=== PATIENT | female | born 1980 ===

== ENCOUNTER 2020-07-14 17:13 | Emergency (ER) | payer MEDICAID ==
--- NOTE | 2020-07-14 17:36 | EDM.PDOC ---
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 Current Visit: Yes Onset Date: ~07/07/20 Annotation/Comment:: Long history of intermittent chest pain as above with some progression during the last week. Chest pain protocol was initiated upon patient's arrival to the emergency room. Note borderline anterior wall cardial ischemia versus lead placement. Mild leukocytosis possibly secondary to stress reaction with no fever or signs of infection. Mild change in troponin I, which is still normal with otherwise normal cardiac enzymes. Various therapeutic options were discussed with the patient, who does not wish to be hospitalized for rule out GA at this time. Close follow-up by regular provider, including recommended Cardiolite stress test in this facility, etc., as per discharge instructions. Work excuse provided. Activity restrictions were discussed. Qualifiers: Chest pain type: precordial pain Qualified Code(s): R07.2 - Precordial pain (2) Peptic reflux disease SNOMED Code(s): 674536697 Code(s): K21.9 - GASTRO-ESOPHAGEAL REFLUX DISEASE WITHOUT ESOPHAGITIS Status: Chronic Priority: High Current Visit: Yes Annotation/Comment:: Previous history of GERD with patient apparently recently prescribed Voltaren, which will now be used with discretion. High-dose IV Pepcid given as GI prophylaxis with resolution of patient's chest pain at time of discharge. Consider EGD, stool for H. pylori antigen, Prilosec therapy, etc. depending on her clinical course and/or once her cardiac status has been clarified. (3) Hyperthyroidism SNOMED Code(s): 35483218 Code(s): E05.90 - THYROTOXICOSIS, UNSP WITHOUT THYROTOXIC CRISIS OR STORM Status: Chronic Priority: Medium Current Visit: Yes Annotation/Comment:: Long history of borderline subclinical hyperthyroidism by her history. Free T3 and free T4 at follow-up with consideration of thyroid ultrasound, etc. depending on her clinical course. (4) Hypotension SNOMED Code(s): 59476892 Code(s): I95.9 - HYPOTENSION, UNSPECIFIED Status: Chronic Priority: Medium Current Visit: Yes Annotation/Comment:: Long history of mild hypotension, which was not symptomatic in the emergency room. Qualifiers: Hypotension type: idiopathic hypotension Qualified Code(s): I95.0 - Idiopathic hypotension (5) Illicit drug use, continuous SNOMED Code(s): 038504138 Code(s): F19.90 - OTHER PSYCHOACTIVE SUBSTANCE USE, UNSPECIFIED, UNCOMPLICATED Status: Chronic Priority: Medium Current Visit: Yes Annotation/Comment:: History of previous significant illicit drug use as above with continuous marijuana use at this time. Patient was counseled extensively on the importance of discontinuing marijuana, its side effects, etc. (6) Irritable bowel syndrome SNOMED Code(s): 81883450 Code(s): K58.9 - IRRITABLE BOWEL SYNDROME WITHOUT DIARRHEA Status: Chronic Priority: Medium Current Visit: Yes Annotation/Comment:: Stable by history Qualifiers: Irritable bowel syndrome type: with both diarrhea and constipation Qualified Code(s): K58.2 - Mixed irritable bowel syndrome (7) Mixed anxiety and depressive disorder SNOMED Code(s): 635100064 Code(s): F41.8 - OTHER SPECIFIED ANXIETY DISORDERS Status: Chronic Priority: Medium Current Visit: Yes Annotation/Comment:: Moderately poor control based on today's exam. Close follow-up by regular provider with medication adjustment, counseling, etc. depending on her clinical course. (8) Osteoarthritis SNOMED Code(s): 548748845 Code(s): M19.90 - UNSPECIFIED OSTEOARTHRITIS, UNSPECIFIED SITE Status: Chronic Priority: Medium Current Visit: Yes Annotation/Comment:: Stable by history with no evidence of DVT, PE, etc. D-dimer reagent was not unavailable today with d-dimer to be conducted at follow-up. Qualifiers: Osteoarthritis location: multiple joints Osteoarthritis type: primary Qualified Code(s): M89.49 - Other hypertrophic osteoarthropathy, multiple sites (9) Tobacco abuse counseling SNOMED Code(s): 218138776, 472521841, 435152610 Code(s): Z71.6 - TOBACCO ABUSE COUNSELING Status: Chronic Priority: Medium Current Visit: Yes Annotation/Comment:: Tobacco cessation strongly encouraged, including its relationship to her probable GERD, etc. Tobacco cessation information provided. (10) Shortened OH interval SNOMED Code(s): 16316225 Code(s): R94.31 - ABNORMAL ELECTROCARDIOGRAM [ECG] [EKG] Status: Acute Priority: Medium Current Visit: Yes Onset Date: 07/14/20 Annotation/Comment:: Observe for now. - Problem List Review Problem List Initiated/Reviewed/Updated: Yes - My Orders Last 24 Hours: My Active Orders 07/14/20 Breakfast Nothing per Oral Now Diet [DIET] 07/14/20 17:47 Cardiac Monitoring [RC] . DIRECTED EKG Documentation Completion [RC] ASDIRECTED Oxygen Therapy, ED [RC] CONTINUOUS Peripheral IV Care [RC] . DIRECTED Pulse Oximetry [RC] PRN Up With Assistance [RC] PFP Vital Signs [RC] PFP Chest 1V Frontal [CR] Stat Sodium Chloride 0.9% [Saline Flush] 10 ml FLUSH ASDIRECTED PRN Obtain Past Medical Record [OM.PC] Urgent Peripheral IV Insertion Adult [OM.PC] Stat Resuscitation Status Stat EKG 12 Lead [EK] Stat - Assessment/Plan Last 24 Hours: My Active Orders 07/14/20 Breakfast Nothing per Oral Now Diet [DIET] 07/14/20 17:47 Cardiac Monitoring [RC] . DIRECTED EKG Documentation Completion [RC] ASDIRECTED Oxygen Therapy, ED [RC] CONTINUOUS Peripheral IV Care [RC] . DIRECTED Pulse Oximetry [RC] PRN Up With Assistance [RC] PFP Vital Signs [RC] PFP Chest 1V Frontal [CR] Stat Sodium Chloride 0.9% [Saline Flush] 10 ml FLUSH ASDIRECTED PRN Obtain Past Medical Record [OM.PC] Urgent Peripheral IV Insertion Adult [OM.PC] Stat Resuscitation Status Stat EKG 12 Lead [EK] Stat Assessment:: As above Plan: As above. Extensive precautions were given to the patient and her significant other, who are in agreement with the treatment plan. See Patient Instructions for further treatment and plan.
[2020-07-14] MEDS ORDERED: Aspirin 81 MG Tab.Chew CHEW ONE (17:47)
[2020-07-14] MEDS ORDERED: Famotidine 20 MG/2 ML SDV IVPUSH ONE (17:47)
[2020-07-14] MEDS ORDERED: Sodium Chloride 0.9% 10 ML Syringe FLUSH PRN (17:47)
[2020-07-14] MEDS ORDERED: Ticagrelor 90 MG Tab PO ONE (17:47)
[2020-07-14 18:10] LABS: HEMOGLOBIN A1C 5.2 % (4.3-5.7)
[2020-07-14 18:13] LABS: PTT,PARTIAL THROMBOPLSTIN TIME 25.9 SEC (24.5-32.8)
[2020-07-14 18:27] LABS: CHLORIDE,CL 103 mmol/L (98-107); SODIUM,NA 139 mmol/L (136-145)
== END 2020-07-14 19:03 | disposition home or self-care (01) ==
LOC: LL.ED 17:13
DX: K58.2 Mixed irritable bowel syndrome (principal); I95.0 Idiopathic hypotension; M89.49 Other hypertrophic osteoarthropathy, multiple sites; R07.2 Precordial pain; K21.9 Gastro-esophageal reflux disease without esophagitis; F41.8 Other specified anxiety disorders; Z71.6 Tobacco abuse counseling; F17.210 Nicotine dependence, cigarettes, uncomplicated; F19.90 Other psychoactive substance use, unspecified, uncomplicated; R94.31 Abnormal electrocardiogram [ECG] [EKG]; E05.90 Thyrotoxicosis, unspecified without thyrotoxic crisis or storm; Z79.899 Other long term (current) drug therapy
CPT/HCPCS: 36415; 71045; 80053; 82550; 82553; 83036; 83605; 83735; 83880; 84443; 84484; 84550; 85025; 85610; 85730; 93005; 96374; 99285; A9270; J3490

== ENCOUNTER 2020-07-30 01:37 | Emergency (ER) | payer BC, MEDICAID ==
[~2020-07-30 01:37] MED LIST: LORazepam 2 MG/ML SDV IVPUSH ONE
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
[2020-07-30] MEDS ORDERED: LORazepam 2 MG/ML SDV IVPUSH ONE ×2 (01:40→02:02)
[2020-07-30] MEDS ORDERED: Haloperidol Lactate 5 MG/ML SDV IV ONE (01:48)
[2020-07-30] MEDS ORDERED: Haloperidol Lactate 5 MG/ML SDV IVPUSH ONE (01:49)
[2020-07-30] MEDS ORDERED: Famotidine 20 MG/2 ML SDV IVPUSH ONE (02:09)
[2020-07-30] MEDS ORDERED: Lactated Ringers 1,000 ML IV SCH (02:15)
[2020-07-30 02:31] LABS: CHLORIDE,CL 105 mmol/L (98-107); SODIUM,NA 143 mmol/L (136-145)
[2020-07-30] MEDS ORDERED: Pantoprazole 40 MG Vial IVPUSH ONE (02:59)
[2020-07-30] MEDS: Sodium Chloride 0.9% 10 ML Syringe FLUSH PRN ×6 (03:19→09:25)
[2020-07-30] MEDS ORDERED: cefTRIAXone 1 GM in Sodium Chloride 0.9% 100 ML IV ONE (07:36)
[2020-07-30 07:37] LABS: BARBITURATE SCREEN,URINE NEGATIVE (NEGATIVE); BENZODIAZEPINES SCREEN,URINE POSITIVE (NEGATIVE); EDDP,URINE SCREEN NEGATIVE (NEGATIVE); TCA SCREEN,URINE NEGATIVE (NEGATIVE); THC SCREEN,URINE 50 NG/ML POSITIVE (NEGATIVE)
[2020-07-30] MEDS ORDERED: Lactated Ringers 1,000 ML IV ONE (07:39)
[2020-07-30] MEDS ORDERED: Iopamidol 612 MG/ML 100 ML Bottle IVPUSH STA (07:54)
[2020-07-30] MEDS ORDERED: Ondansetron 4 MG/2 ML SDV IVPUSH ONE (08:42)
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
== END 2020-07-30 11:00 | disposition home or self-care (01) ==
LOC: EDBD → LL.ED 01:37 → MERGE 01:37 → LL.ED 11:00
DX: K85.20 Alcohol induced acute pancreatitis without necrosis or infection (principal); F10.129 Alcohol abuse with intoxication, unspecified; R74.0 Nonspecific elevation of levels of transaminase and lactic acid dehydrogenase [LDH]; R03.0 Elevated blood-pressure reading, without diagnosis of hypertension; F19.90 Other psychoactive substance use, unspecified, uncomplicated; F41.9 Anxiety disorder, unspecified; F32.9 Major depressive disorder, single episode, unspecified; F17.210 Nicotine dependence, cigarettes, uncomplicated; Z79.899 Other long term (current) drug therapy
CPT/HCPCS: 36415; 74178; 80053; 80305; 80307; 81001; 82150; 83605; 83690; 84703; 85025; 87086; 96361; 96365; 96375; 99284; C9113; J0696; J1630; J2060; J2405; J3490; J7050; J7120; Q9967; 96376

== ENCOUNTER 2020-12-05 12:07 | Emergency (ER) | payer BC, MEDICAID ==
[2020-12-05] MEDS ORDERED: Ondansetron 4 MG/2 ML SDV IVPUSH ONE (12:09)
[2020-12-05] MEDS ORDERED: Sodium Chloride 0.9% 1,000 ML IV ONE (12:09)
[2020-12-05 12:33] LABS: CHLORIDE,CL 107 mmol/L (98-107); SODIUM,NA 142 mmol/L (136-145)
[2020-12-05] MEDS ORDERED: Promethazine 25 MG/ML SDV IM ONE (12:43)
[2020-12-05] MEDS ORDERED: Iopamidol 612 MG/ML 150 ML Bottle ONE (13:18)
[2020-12-05] MEDS ORDERED: Iopamidol 612 MG/ML 100 ML Bottle ONE (13:18)
[2020-12-05 13:22] LABS: BARBITURATE SCREEN,URINE NEGATIVE (NEGATIVE); BENZODIAZEPINES SCREEN,URINE NEGATIVE (NEGATIVE); EDDP,URINE SCREEN NEGATIVE (NEGATIVE); TCA SCREEN,URINE NEGATIVE (NEGATIVE); THC SCREEN,URINE 50 NG/ML POSITIVE (NEGATIVE)
[2020-12-05] MEDS ORDERED: Iopamidol 612 MG/ML 100 ML Bottle IVPUSH ONE (13:52)
[2020-12-05] MEDS ORDERED: Ketorolac 30 MG/ML SDV IVPUSH ONE (14:25)
[2020-12-05] MEDS: Sodium Chloride 0.9% 10 ML Syringe FLUSH PRN ×2 (14:33→15:32)
[2020-12-05] MEDS ORDERED: GI Cocktail Oral Solution 30 ML PO ONE (14:33)
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
[2020-12-05] MEDS ORDERED: Sodium Chloride 0.9% 1,000 ML IV SCH (15:30)
== END 2020-12-05 16:00 ==
LOC: LL.ED 12:07
DX: R10.13 Epigastric pain (principal); R11.2 Nausea with vomiting, unspecified; F41.9 Anxiety disorder, unspecified; F32.9 Major depressive disorder, single episode, unspecified; Z79.899 Other long term (current) drug therapy
CPT/HCPCS: 36415; 74177; 80053; 80305-QW; 81001; 83690; 85025; 96372; 96374; 96375; 99284; 99285-25; A9270-GY; J1885; J2405; J2550; J7030; Q9967

== ENCOUNTER 2021-01-02 13:38 | Emergency (ER) | payer BC, MEDICAID ==
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
[2021-01-02] MEDS: Ketorolac 60 MG/2 ML SDV IM ONE (14:06)
[2021-01-02] MEDS: methylPREDNISolone Acetate 80 MG/ML SDV IM ONE (14:07)
[2021-01-02 15:40] VITALS: BP 113/62; PULSE 81
== END 2021-01-02 14:15 | disposition home or self-care (01) ==
LOC: LL.ED 13:38
DX: K27.9 Peptic ulcer, site unspecified, unspecified as acute or chronic, without hemorrhage or perforation (principal); M89.49 Other hypertrophic osteoarthropathy, multiple sites; F41.8 Other specified anxiety disorders; R09.1 Pleurisy; Z71.6 Tobacco abuse counseling; E66.9 Obesity, unspecified; Z79.899 Other long term (current) drug therapy
CPT/HCPCS: 71046; 96372; 99284; 99284-25; J1040; J1885